=== PATIENT | male | born 1940 | race Caucasian/White ===

== ENCOUNTER 2022-03-30 07:56 | Emergency (ER) | payer OTHER ==
[~2022-03-30] VITALS: Ht 182.9 cm; Wt 100.0 kg
[2022-03-30 08:44] VITALS: BP 132/80
== END 2022-03-30 08:57 | disposition home or self-care (01) ==
LOC: ER 07:57
DX: Z48.00 Encounter for change or removal of nonsurgical wound dressing (principal); I97.620 Postprocedural hemorrhage of a circulatory system organ or structure following other procedure
CPT/HCPCS: 99281

== ENCOUNTER 2022-09-10 08:59 | Day surgery (SDC) | payer MEDICARE, OTHER ==
[2022-09-03 11:29] LABS: BASOPHILS # (AUTO) 0.1 X10'3 (0-0.2); BASOPHILS % (AUTO) 0.9 % (0-1); EOSINOPHILS # (AUTO) 0.5 X10'3 (0-0.9); EOSINOPHILS % (AUTO) 6.7 % (0-6); LYMPHOCYTES # (AUTO) 1.5 X10'3 (1.1-4.8); LYMPHOCYTES % (AUTO) 20.6 % (21-51); MEAN CORPUSCULAR HEMOGLOBIN 30.7 PG (27.0-31.0); MEAN CORPUSCULAR HGB CONC 33.9 g/dL (33.0-36.5); MEAN CORPUSCULAR VOLUME 90.4 FL (78-98); MEAN PLATELET VOLUME 7.2 FL (7.4-10.4); MONOCYTES # (AUTO) 0.8 X10'3 (0-0.9); MONOCYTES % (AUTO) 11.2 % (2-12); NEUTROPHILS # (AUTO) 4.3 X10'3 (1.8-7.7); NEUTROPHILS % (AUTO) 60.6 % (42-75); PRE OP HEMATOCRIT 44.3 % (42.0-52.0); PRE OP PLATELET COUNT 226 X10'3 (140-440); RED CELL DISTRIBUTION WIDTH 16.4 % (11.5-14.5)
[2022-09-03 11:40] LABS: ALBUMIN/GLOBULIN RATIO 1.1 (1.1-1.5); ALKALINE PHOSPHATASE 104 IU/L (46-116); BLOOD UREA NITROGEN 22 MG/DL (7-18); CALCIUM 10.1 MG/DL (8.5-10.1); CHLORIDE 100 MMOL/L (99-107); CREATININE 1.22 MG/DL (0.60-1.10); PRE OP ALT 12 U/L (30-65); PRE OP ANION GAP 5 (8-16); PRE OP AST 16 U/L (10-37); PRE OP BILIRUB, TOTAL 0.6 MG/DL (0.0-1.0); PRE OP GLUCOSE 117 MG/DL (70-104); PRE OP POTASSIUM 4.5 MMOL/L (3.4-5.1); PRE OP SODIUM 137 MMOL/L (135-145); TOTAL CARBON DIOXIDE 32.4 MMOL/L (24-32); TOTAL PROTEIN 7.6 G/DL (6.4-8.2); eGFR 57 ML/MIN
[~2022-09-10] VITALS: Ht 182.9 cm; Wt 107.6 kg
[2022-09-10] VITALS (10 sets, daily range): BP systolic 124–138; BP diastolic 69–88
[~2022-09-10 08:59] MED LIST: ADV50100 IH; ALBU8HFA PO; ALLO100T PO; ATOR10TA87 PO; DOCUMENT DATE & TIME OF BETA-BLOCKER PO ONE; ERGO400C PO; FAMO-49 PO; FURO-150 PO; LISI5TAB22 PO; METF-436 PO; METO100T7 PO; OMEP20CA15 PO; RIVA20TA PO; SERT-433 PO; TIOT18CA3 INH; UREA227C4 TOP; ceFAZolin inj. 2,000 MG in dextrose 5%-water 100 ML IV ONE; famotidine 20mg tablet PO ONE; metoprolol tartrate 12.5mg (1/2 tablet) PO ONE; ringers solution, lacted 1,000 ML IV SCH
[2022-09-10] MEDS ORDERED: LIDOcaine 1% 30ml preserv. free vial ONE (10:51)
[2022-09-10] MEDS ORDERED: ceFAZolin 1000mg inj ONE (10:51)
[2022-09-10] MEDS ORDERED: BUPIVAcaine/PF 2.5mg/ml (0.25%) 10ml vial ONE (10:57)
[2022-09-10] MEDS ORDERED: HYDROcodone/acetaminophen 10/325mg tab PO PRN (11:20)
[2022-09-10] MEDS ORDERED: midazolam 1 mg/ML 2ml injection ONE (11:22)
[2022-09-10] MEDS ORDERED: fentaNYL/PF 50MCG/1 ML 2ML syringe ONE (11:22)
[2022-09-10] MEDS ORDERED: HYDR-3972 PO (11:26)
[2022-09-10] MEDS ORDERED: ketamine 50mg/5ml syringe ONE (11:57)
[2022-09-10] MEDS ORDERED: LIDOcaine 2% (20mg/ml) 5ml vial ONE (11:58)
[2022-09-10] MEDS ORDERED: propofol inj 20 ML IV ONE (11:58)
[2022-09-10] MEDS ORDERED: albuterol 2.5 MG/3 ML nebule NEB PRN (12:00)
[2022-09-10] MEDS ORDERED: famotidine 20mg tablet PO PRN (12:00)
--- NOTE | 2022-09-10 12:01 | NUR ---
Received from OR via [facility], accompanied by Anesthesiologist DR GIRON and report given by Anesthesiologist AND [employer]ARD [employer]OR SUPERVISOR. PT AWAKE AND VERY TALKATIVE, DENIES PAIN. LEFT UPPER CHEST W/INCISION OVER PPM CDI W/TAGADERM COVERING, SLIGHTLY SWOLLEN BUT SOFT TO THE TOUCH. PACEMAKER REP HERE TO ASSESS, DR PRADO IN TO SEE PT. Addendum: 09/10/22 at 1255 by Kaitlynn Baxter RN Amended: Links added.
[2022-09-10] MEDS ORDERED: HYDROcodone/acetaminophen 5mg/325mg tablet PO PRN (12:05)
--- NOTE | 2022-09-10 13:36 | NUR ---
PTS INCISION REMAINS W/SCANT AMOUNT SANGUINOUS DRAINAGE, SMALL SWELLING NOTED OVER INCISION REMAINS SOFT AND W/O CHANGE. PT UP AND ABLE TO AMBULATE SAFELY, VOIDED X 1. DENIES PAIN. D/C INSTRUCTIONS GIVEN AND GONE OVER W/PT WHO VERBALIZED UNDERSTANDING. PT D/C TO HOME VIA W/C TO PRIVATE VEHICLE W/O INCIDENT. Addendum: 09/10/22 at 1402 by Kaitlynn Baxter RN Amended: Links added.
[2022-09-10] MEDS ORDERED: albuterol 2.5 MG/3 ML nebule NEB SCH (20:00)
[2022-09-10] MEDS ORDERED: metFORMIN 500mg tablet PO SCH (20:00)
[2022-09-10] MEDS ORDERED: rivaroxaban 20mg tablet PO SCH (21:00)
[2022-09-10] MEDS ORDERED: ipratropium/albuterol 3ml nebule NEB SCH (21:00)
[2022-09-10] MEDS ORDERED: budesonide 0.5mg/2ml UD nebule IH SCH (21:00)
[2022-09-11] MEDS ORDERED: atorvastatin 10mg tablet PO SCH (08:00)
[2022-09-11] MEDS ORDERED: cholecalciferol (vitamin D3) 1,000 unit (25mcg) tablet PO SCH (08:00)
[2022-09-11] MEDS ORDERED: pantoprazole 40mg Tablet.DR PO SCH (08:00)
[2022-09-11] MEDS ORDERED: lisinopril 5mg tablet PO SCH (08:00)
[2022-09-11] MEDS ORDERED: ipratropium 0.5 MG/2.5ML nebule NEB SCH (08:00)
[2022-09-11] MEDS ORDERED: metoprolol succinate 25mg (24-HOUR) SR. Tablet PO SCH (08:00)
[2022-09-11] MEDS ORDERED: UREA TOP SCH (08:00)
[2022-09-11] MEDS ORDERED: furosemide 20MG tablet PO SCH (08:00)
[2022-09-11] MEDS ORDERED: sertraline 50mg tablet PO SCH (08:00)
[2022-09-11] MEDS ORDERED: allopurinol 100mg tablet PO SCH (08:00)
== END 2022-09-10 13:36 | disposition home or self-care (01) ==
LOC: PAS 08:59
PROVIDERS: ATTEND Thoracic Surgery (Cardiothoracic Vascular Surgery)
DX: T82.191A Other mechanical complication of cardiac pulse generator (battery), initial encounter (principal); Y83.8 Other surgical procedures as the cause of abnormal reaction of the patient, or of later complication, without mention of misadventure at the time of the procedure; Z79.899 Other long term (current) drug therapy; E78.5 Hyperlipidemia, unspecified; I11.0 Hypertensive heart disease with heart failure; I50.9 Heart failure, unspecified; E11.9 Type 2 diabetes mellitus without complications; K21.9 Gastro-esophageal reflux disease without esophagitis; I42.0 Dilated cardiomyopathy; Z98.890 Other specified postprocedural states; K22.70 Barrett's esophagus without dysplasia; Z87.891 Personal history of nicotine dependence; Z72.89 Other problems related to lifestyle
CPT/HCPCS: 33223; 36415; 71045; 71046; 80053; 82948; 85025; 93005; A6258; J0690; J2250; J2704; J3010; J3490; J7030; J7060; J7120; Z7506; Z7512; A4215; A4565; A4618; A7000